=== PATIENT | male | born 1950 | race Caucasian/White ===

== ENCOUNTER → 2022-01-12 | Outpatient (CLI) | payer MEDICARE, OTHER ==
[~2022-01-12] VITALS: Ht 182.9 cm; Wt 95.0 kg
[2022-01-12] VITALS (8 sets, daily range): BP systolic 141–196; BP diastolic 47–99; PULSE 53–76; TEMP 98.1
[~2022-01-12] MED LIST: HYZAAR 25 MG-101 TAB PO; JUICE PLUS FRUIT PO; JUICE PLUS OMEGA PO; LEVOXYL0.088 MG PO; NORVASC 10MG10 MG PO; TYLENOL 500MG500 MG PO; VITAMIN D 50,1.25 MG PO; [UNRECOGNIZED DRUG - OTHER] PO
== END ==
LOC: COL.RAD 12:00
DX: S34.115A Complete lesion of L5 level of lumbar spinal cord, initial encounter (principal); M54.50 Low back pain, unspecified
CPT/HCPCS: 32109

== ENCOUNTER → 2022-07-15 | Outpatient (CLI) | payer MEDICARE | LOC: COL.RAD 08:13 | DX: C34.90 Malignant neoplasm of unspecified part of unspecified bronchus or lung (principal); C79.51 Secondary malignant neoplasm of bone | CPT/HCPCS: Q9967 ==

== ENCOUNTER 2023-11-28 13:58 | Outpatient (CLI) | payer OTHER ==
[~2023-11-28] VITALS: Ht 182.9 cm; Wt 84.5 kg
[~2023-11-28 13:58] MED LIST changes: +CANCER MEDICATION PO; +FOLIC ACID 11 MG/TA1 PO; +HYZAAR 50-12.1 UDTAB PO; +PREDNISONE20 MG PO; +PRILOSEC 20MG20 MG PO; +PROBIOTIC-MAJOR PO; +VITAMIN B12 1541 TAB PO; +ZYRTEC 10MG10 MG PO; +[UNRECOGNIZED DRUG - OTHER] PO
[2023-11-28] MEDS ORDERED: CALCIUM CITRATE1 TA4 PO (14:17)
[2023-11-28] MEDS ORDERED: K-DUR20 MEQ PO (14:17)
[2023-11-28] MEDS ORDERED: LASIX 20MG TABL20 MG PO (14:19)
[2023-11-28] MEDS ORDERED: [UNRECOGNIZED DRUG - OTHER] PO (14:23)
[2023-11-28 14:25] VITALS: BP 125/67; PULSE 66; TEMP 97.4
[2023-11-28 16:41] VITALS: BP 127/60; PULSE 66
--- NOTE | 2023-11-28 16:55 | NUR ---
PT TOLERATED RECOVERY WELL. VS REMAINED WITHIN NORMAL LIMITS. PT FREE FROM ACUTE CONCERNS AND COMPLAINTS UPON DISCHARGE. PT WAS ASSISTED TO MAIN LOBBY VIA WHEELCHAIR. IV DISCONTINUED.
[2023-11-28 17:18] LABS: PLEURAL FLUID RBC 7000 /mm3 (0-0); PLEURAL FLUID WBC 839 /mm3
[2023-11-28 22:00] LABS: BODY FLUID PH (AMS) 8 (())
[2023-11-29 06:10] LABS: PLEURAL FLUID APPEARANCE HAZY; PLEURAL FLUID COLOR YELLOW
== END 2023-11-28 16:56 | disposition home or self-care (01) ==
LOC: COL.RAD 13:58
PROVIDERS: Internal Medicine
DX: J90 Pleural effusion, not elsewhere classified (principal); Z85.118 Personal history of other malignant neoplasm of bronchus and lung
CPT/HCPCS: 19804

== ENCOUNTER 2023-12-09 19:55 | Inpatient (IN) | payer OTHER ==
[~2023-12-09] VITALS: Ht 172.7 cm; Wt 82.4 kg
[~2023-12-09 19:55] MED LIST changes: +CALCIUM CITRATE1 TA4 PO; +K-DUR20 MEQ PO; +LASIX 20MG TABL20 MG PO; +[UNRECOGNIZED DRUG - OTHER] PO
[2023-12-09 20:37] LABS: BASO % 0.3 % (0.0-2.0); EOS # 0.1 K/mm3 (0.0-0.7); EOS % 0.7 % (0.0-4.0); GRAN # 8.4 K/mm3 (1.4-6.5); GRAN % 78.3 % (42.2-75.2); INR 1.1 (0.8-3.0); LYMPH # 0.8 K/mm3 (1.2-3.4); MEAN CELL VOLUME 93 fl (80.0-100.0); MEAN CORPUSCULAR HGB CONC 31 g/dl (33.0-37.0); MEAN PLATELET VOLUME 9.5 fl (7.4-10.4); MONO # 1.4 K/mm3 (0.1-0.6); PLATELET COUNT 272 K/mm3 (130-400); PROTHROMBIN TIME 11.9 SECONDS (9.7-12.8); RED BLOOD COUNT 3.33 M/mm3 (4.20-5.60); REDCELL DISTRIBUTION WIDTH-CV 16.7 % (11.5-14.5)
[2023-12-09 20:38] LABS: HEMOGLOBIN 9.7 g/dl (13.5-18.0); MEAN CORPUSCULAR HEMOGLOBIN 29 pg (27-31)
[2023-12-09 20:40] LABS: PARTIAL THROMBOPLASTIN TIME 29.6 SECONDS (26.0-37.0)
[2023-12-09 20:48] LABS: ALBUMIN 2.7 g/dL (3.4-4.8); CREATININE, serum 1.12 mg/dL (0.72-1.25); POTASSIUM 4.3 mEq/L (3.5-4.5); TOTAL PROTEIN 6.3 g/dl (6.2-8.1)
[2023-12-09 20:57] LABS: BILIRUBIN,TOTAL 0.3 mg/dL (0.2-1.2)
[2023-12-09] MEDS ORDERED: Acetaminophen 325 MG TAB PO PRN (23:45)
[2023-12-09] MEDS ORDERED: Metoprolol Tartrate 25 MG TAB PO SCH (23:45)
[2023-12-10] VITALS (11 sets, daily range): BP systolic 99–129; BP diastolic 51–73; PULSE 43–75; TEMP 97.6–98.6
[2023-12-10] MEDS ORDERED: LIALDA 1.2 GM1.2 GM PO (00:47)
[2023-12-10] MEDS ORDERED: Melatonin 3 MG TAB PO SCH (01:56)
--- NOTE | 2023-12-10 05:57 | NUR ---
PT ARRIVED TO UNIT AROUND 0100 FROM ED, WALKED INDEPENDANTLY FROM [place] TO BED IN ROOM. VERY PLEASANT MAN WHO REPORTS HE SERVED IN [email or web address], APPEARS APPROPRIATE FOR AGE. ORIENTED TO ROOM AND ALL ADMSSION ASSESSMENTS COMPLETE. HIS SHOULD BE BRINGING IN HIS ORAL CHEMO MEDICATION LATER THIS MORNING. DENIES ANY PAIN AT THIS TIME, AND VS WNL. HAS +2PITTING EDEMA TO RIGHT LOWER EXTREMITY, MED REQU COMPLETE. WANT TO GET SOME REST AND IS AWARE HE WILL BE HERE AT LEAST UNTIL TUESDAY FOR ANTICIPATED PROCEDURES. CALL LIGHT WITHIN REACH, BED IN LOWEST POSITION.
[2023-12-10 06:06] LABS: BASO % 0.5 % (0.0-2.0); EOS # 0.1 K/mm3 (0.0-0.7); EOS % 1.1 % (0.0-4.0); GRAN % 73.4 % (42.2-75.2); LYMPH # 0.8 K/mm3 (1.2-3.4); LYMPH % 9.2 % (20.0-51.0); MEAN CELL VOLUME 93 fl (80.0-100.0); MEAN CORPUSCULAR HGB CONC 32 g/dl (33.0-37.0); MEAN PLATELET VOLUME 9.5 fl (7.4-10.4); MONO # 1.2 K/mm3 (0.1-0.6); MONO % 15.1 % (1.7-9.3); PLATELET COUNT 215 K/mm3 (130-400); RED BLOOD COUNT 2.73 M/mm3 (4.20-5.60); REDCELL DISTRIBUTION WIDTH-CV 16.6 % (11.5-14.5)
[2023-12-10 06:14] LABS: HEMATOCRIT 25.3 % (42.0-52.0); MEAN CORPUSCULAR HEMOGLOBIN 29 pg (27-31)
[2023-12-10 06:31] LABS: CALCIUM 8.2 mg/dL (8.4-10.2); CREATININE, serum 1.05 mg/dL (0.72-1.25); POTASSIUM 4.2 mEq/L (3.5-4.5)
--- NOTE | 2023-12-10 07:39 | NUR ---
Bedside report received from SHAREE Alexander. Pt awake in bed with no complaints. Call light within reach.
[2023-12-10] MEDS ORDERED: Cyanocobalamin (Vit B-12) 1,000 MCG TAB PO SCH (09:00)
[2023-12-10] MEDS ORDERED: Cetirizine 10 MG TAB PO SCH (09:00)
[2023-12-10] MEDS ORDERED: Folic Acid 1 MG TAB PO SCH (09:00)
[2023-12-10] MEDS ORDERED: Mesalamine DR 1.2 GM TAB PO SCH ×2 (09:00→22:05)
[2023-12-10] MEDS ORDERED: Calcium Citrate/Vit D3 200 mg-250 Units TAB PO SCH (09:00)
--- NOTE | 2023-12-10 09:01 | NUR ---
This nurse entered pt room to complete shift assessment and observed spouse at bedside give pt a bottle of home medications. Home medication bottle is unlabled and contains different medications per pt and pt spouse. This nurse educated pt about protocol to send home medications to pharmacy and pt stated he had oral chemo medication that he needed to take. This nurse notified hospitalist Dr. Pathak and Dr. Pathak instructed this nurse to send home medications to pharmacy for identification of medications. Pt was agreeable to allow pharmacy to identify medications. Spouse of pt is going to bring in original bottles for pharmacy.
--- NOTE | 2023-12-10 09:19 | NUR ---
Pt awake in bed eating breakfast. Shift assessment completed. VSS.
--- NOTE | 2023-12-10 11:29 | NUR ---
SW met with patient to complete intake. Patient states that he lives in [facility] with spouse Nicole Hitchcock [phone]. Patient provides he does not utilize DME, is independent with ADLs, and does not utilize home health services at this time. Patient provides his spouse has been appointed as DPOA/HC. Patient provides he plans to return to his home upon discharge. SW will continue to follow. Discharge plan: home
[2023-12-10] MEDS ORDERED: Patient's Own Medication Item PO SCH (12:30)
--- NOTE | 2023-12-10 14:14 | NUR ---
Data: Patient politely declined spiritual care visit offered during Director Athletic rounds. Assessment: None. Patient declined. Plan of Care: Chaplains will remain available as requested while Patient is admitted to this hospital.
--- NOTE | 2023-12-10 16:28 | NUR ---
Dr. Hernandez notifed of heart rate of 43 bpm.
--- NOTE | 2023-12-10 21:50 | NUR ---
DISCREPANCY ON DOSAGE OF MESALAMINE, PT HOME MED. NOTIFIED BOND BROKER JENNIFER WHO CHECKED BOTTLE IN PHARMACY. NOTIFIED FELTON EVANS APRN WHO GAVE TORB TO UPDATE CORRECT DOSAGE IN MAR AND MED REQ.
[2023-12-10] MEDS ORDERED: Mesalamine DR 1.2 GM TAB PO ONE (22:15)
[2023-12-11] VITALS (14 sets, daily range): BP systolic 102–133; BP diastolic 54–73; PULSE 40–87; TEMP 98–98.6
--- NOTE | 2023-12-11 02:43 | NUR ---
PT ALERT AND ORIENENTED ACCOMPANIED BY AT BEDSIDE AT START OF SHIFT. REALLY WANTING THE THORACENTESIS DONE TO HELP PT WITH EASE OF BREATHING. UPDATED MED REC. ASSESSED AND MEDICATED PER EMAR, EVEN UNLABORED RESPR ON 4 L NC. DENIES PAIN WOULD LIKE CHEMO MEDS RO BE GIVEN ON SCHEDULE AT 0900 AND 2100. WILL BE SURE TO PASS ON IN REPORT. DENIES FURTHER NEED, CALL LIGHT WITHIN REACH.
[2023-12-11 06:55] LABS: BASO % 0.5 % (0.0-2.0); EOS # 0.1 K/mm3 (0.0-0.7); GRAN % 75.5 % (42.2-75.2); LYMPH # 0.6 K/mm3 (1.2-3.4); LYMPH % 7.2 % (20.0-51.0); MEAN CELL VOLUME 92 fl (80.0-100.0); MEAN CORPUSCULAR HGB CONC 32 g/dl (33.0-37.0); MEAN PLATELET VOLUME 9.7 fl (7.4-10.4); MONO # 1.2 K/mm3 (0.1-0.6); MONO % 15.2 % (1.7-9.3); PLATELET COUNT 210 K/mm3 (130-400); RED BLOOD COUNT 2.85 M/mm3 (4.20-5.60); REDCELL DISTRIBUTION WIDTH-CV 16.3 % (11.5-14.5)
[2023-12-11 07:02] LABS: HEMATOCRIT 26.2 % (42.0-52.0); HEMOGLOBIN 8.5 g/dl (13.5-18.0); MEAN CORPUSCULAR HEMOGLOBIN 30 pg (27-31)
--- NOTE | 2023-12-11 07:07 | NUR ---
Bedside report received from SHAREE Alexander. Pt resting in bed with no complaints. Call light within reach.
[2023-12-11 07:08] LABS: CALCIUM 8.1 mg/dL (8.4-10.2); CREATININE, serum 0.87 mg/dL (0.72-1.25); POTASSIUM 3.9 mEq/L (3.5-4.5)
[2023-12-11] MEDS ORDERED: Mesalamine DR 1.2 GM TAB PO SCH ×2 (09:00)
--- NOTE | 2023-12-11 09:04 | NUR ---
Pt awake in bed. Shift assessment completed. VSS with O2 in place via NC at 4L. Tachypnea with shallow respirations noted. BLE edema noted. Telemetry in place. Pt denies pain at this time. Pt has no complaints at this time, call light within reach.
[2023-12-12] VITALS (20 sets, daily range): BP systolic 94–126; BP diastolic 46–85; PULSE 45–102; TEMP 97.6–98.6
--- NOTE | 2023-12-12 07:12 | NUR ---
Bedside report received from SHAREE Moraes. Pt awake in bed with no complaints. Call light within reach.
[2023-12-12 07:17] LABS: BASO % 0.4 % (0.0-2.0); EOS # 0.1 K/mm3 (0.0-0.7); EOS % 0.7 % (0.0-4.0); GRAN # 6.5 K/mm3 (1.4-6.5); GRAN % 75.6 % (42.2-75.2); LYMPH # 0.6 K/mm3 (1.2-3.4); LYMPH % 7.3 % (20.0-51.0); MEAN CELL VOLUME 94 fl (80.0-100.0); MEAN CORPUSCULAR HGB CONC 32 g/dl (33.0-37.0); MEAN PLATELET VOLUME 9.6 fl (7.4-10.4); MONO # 1.3 K/mm3 (0.1-0.6); MONO % 15.3 % (1.7-9.3); PLATELET COUNT 203 K/mm3 (130-400); RED BLOOD COUNT 2.88 M/mm3 (4.20-5.60); REDCELL DISTRIBUTION WIDTH-CV 16.4 % (11.5-14.5)
[2023-12-12 07:23] LABS: HEMOGLOBIN 8.5 g/dl (13.5-18.0); MEAN CORPUSCULAR HEMOGLOBIN 30 pg (27-31)
[2023-12-12 07:37] LABS: CREATININE, serum 0.85 mg/dL (0.72-1.25); POTASSIUM 3.9 mEq/L (3.5-4.5)
--- NOTE | 2023-12-12 08:45 | NUR ---
Pt awake in bed visiting with at bedside. Shift assessment completed. VSS. Rt lung sounds diminished throughout upon auscultation. Lt lung sounds clear throughout upon auscultation. Pt denies pain at this time. INT to Rt AC patent with no swelling, redness, or drainage. Pt has no request at this time. Call light within reach.
--- NOTE | 2023-12-12 12:05 | NUR ---
Pt found on 2L/NC 87% at rest. Did not amublate. Placed on 4L Oxymask for SPO2 91%. Mild SOA at rest.
--- NOTE | 2023-12-12 15:38 | NUR ---
social worker delinquency prevention attended interdisciplinary clinical rounding with Dr. Galeano. Patient may need oxygen upon discharge but will complete an exercise oximetry test. SW met with patient and his to confirm if patient has Medicare. Patient reports he does not have Medicare insurance only the [place]. SW was notified patient is awaiting a procedure then will have his exercise oximetry completed to determine oxygen needs. Discharge plan: Home
[2023-12-12 17:33] LABS: PLEURAL FLUID RBC 2000 /mm3 (0-0); PLEURAL FLUID WBC 1008 /mm3
[2023-12-12 17:34] LABS: PLEURAL FLUID APPEARANCE HAZY; PLEURAL FLUID COLOR YELLOW
--- NOTE | 2023-12-12 18:58 | NUR ---
report received from lilia newell. pt resting in bed watching tv. pt continues on post op vital signs wnl. pt denies pain. call light in reach. all needs met at this time.
--- NOTE | 2023-12-12 21:04 | NUR ---
shift assessment complete, see documentation. pt tolerated hs meds well. pt denies pain. thoracentesis site cdi. pt able to take slow deep breaths without issue. RLL lung sounds absent but pt asymptomatic. oxygen remains 96% on 6L NC. call light in reach. all needs met at this time.
[2023-12-13] VITALS (8 sets, daily range): BP systolic 94–124; BP diastolic 67–73; PULSE 57–85; TEMP 98–98.1
[2023-12-13 05:46] LABS: BASO % 0.4 % (0.0-2.0); EOS # 0.1 K/mm3 (0.0-0.7); GRAN % 75.6 % (42.2-75.2); LYMPH # 0.7 K/mm3 (1.2-3.4); LYMPH % 7.3 % (20.0-51.0); MEAN CELL VOLUME 92 fl (80.0-100.0); MEAN CORPUSCULAR HGB CONC 33 g/dl (33.0-37.0); MEAN PLATELET VOLUME 9.5 fl (7.4-10.4); MONO # 1.4 K/mm3 (0.1-0.6); MONO % 15.3 % (1.7-9.3); PLATELET COUNT 179 K/mm3 (130-400); RED BLOOD COUNT 2.87 M/mm3 (4.20-5.60); REDCELL DISTRIBUTION WIDTH-CV 15.9 % (11.5-14.5)
[2023-12-13 05:54] LABS: HEMATOCRIT 26.4 % (42.0-52.0); HEMOGLOBIN 8.6 g/dl (13.5-18.0); MEAN CORPUSCULAR HEMOGLOBIN 30 pg (27-31)
[2023-12-13 05:58] LABS: CALCIUM 7.9 mg/dL (8.4-10.2); CREATININE, serum 0.81 mg/dL (0.72-1.25)
--- NOTE | 2023-12-13 07:26 | NUR ---
SPO2 98% ON 2 LPM NC. DECREASED TO 5 LPM NC. RN NOTIFIED
--- NOTE | 2023-12-13 09:13 | NUR ---
spo2 at rest 93% on 5 human resources professional nc
--- NOTE | 2023-12-13 12:44 | NUR ---
gas pit worker attended interdisciplinary clinical rounding with Dr. Galeano. Patient will need oxygen. KIMBERLEE obtained RFS for patient to receive oxygen through the [place]. KIMBERLEE faxed and secure emailed RFS and supporting documentation to the [facility]. KIMBERLEE was notified patient had received a call from the [facility] and they gave patient a different fax number, F# [phone], social science teacher faxed to this number as well. KIMBERLEE notified patient's she had sent these and were waiting to hear from VA. Patient's also requested walker with seat and shower chair. KIMBERLEE will send another RFS to [place] for these DME supplies. Discharge plan: home
[2023-12-13 13:30] LABS: BODY FLUID PH (AMS) 8 (())
[2023-12-13] MEDS ORDERED: COMPAZINE 110 MG/TAB PO (14:30)
[2023-12-13] MEDS ORDERED: RESTORIL 1515 MG/CAP PO (14:30)
--- NOTE | 2023-12-13 16:23 | NUR ---
line out worker was notified by [place] that they were going to transfer her to the home oxygen specialist, Sharath, P# [phone] [id number]. KIMBERLEE was notified by Sharath that his fax is [phone] and he would work on obtaining the oxygen supplies needed. KMIBERLEE faxed the information to Sharath at [phone]. KIMBERLEE faxed the RFS for the rollator walker and shower chair to counts include [facility] beds at the [facility]. KIMBERLEE notified patient that she had to resend it to the VA to another number and she would keep his staff informed about the process. KIMBERLEE explained she requested the walker and shower chair be delivered to his home so they would not need to wait for those at the hospital. Patient thanked executive secretary social welfare. KIMBERLEE was notified by Sharath that he had sent it to their contractor whom will deliver the oxygen to patient's room. KIMBERLEE asked for an estimated timeline, Sharath stated approximately 2-3 hours. Sharath stated normally they can get patient's out of the hospital with oxygen quickly as long as the information is sent to the correct location. KIMBERLEE notified patient's nurse, Dr. Galeano and ANASTACIA Woodson. Discharge plan: Home with oxygen
--- NOTE | 2023-12-13 17:58 | NUR ---
PATIENT DISCHARGE INSTRUCTIONS GIVEN. PATIENT QUESTIONS WERE ANSWERED. CALL LIGHT WITHIN REACH. BED AT LOWEST POSITION.
--- NOTE | 2023-12-13 19:21 | NUR ---
RECIEVED REPORT FROM DAY SHIFT. PT IS WAITING ON RIDE TO GO HOME.
--- NOTE | 2023-12-13 19:52 | NUR ---
PT CAME TO FLOOR SCRAPER PT. THIS NURSE ESCORTED PT OUT IN WHEEL CHAIR WITH OXYGEN AT 5 LITERS.
== END 2023-12-13 19:53 | disposition home or self-care (01) | DRG 180 ==
LOC: COL.ER 19:55 → MEDICAL 22:12
PROVIDERS: Family Medicine; Internal Medicine; Nurse Practitioner Family; Physician Assistant; ADMIT Internal Medicine
DX: C34.91 Malignant neoplasm of unspecified part of right bronchus or lung (principal); J96.01 Acute respiratory failure with hypoxia; J90 Pleural effusion, not elsewhere classified; I10 Essential (primary) hypertension; R00.8 Other abnormalities of heart beat; E03.9 Hypothyroidism, unspecified

== ENCOUNTER 2023-12-21 18:38 | Inpatient (IN) | payer OTHER ==
[~2023-12-21] VITALS: Ht 182.9 cm; Wt 79.2 kg
[~2023-12-21 18:38] MED LIST changes: +COMPAZINE 110 MG/TAB PO; +LIALDA 1.2 GM1.2 GM PO; +RESTORIL 1515 MG/CAP PO
[2023-12-21 19:09] LABS: ARTERIAL BLD GAS O2 SATURATION 94.4 % (92-100); ARTERIAL BLD GAS TCO2 CT 21.8; ARTERIAL BLOOD GAS BASE EXCESS -2.1 (-2-2); ARTERIAL BLOOD GAS HCO3 20.9 meq/L (22-26); ARTERIAL BLOOD GAS PCO2 29.5 mmHg (35-45); ARTERIAL BLOOD GAS PO2 73.6 mmHg (80-100); ARTERIAL BLOOD GAS pH 7.47 (7.35-7.45)
[2023-12-21 19:35] LABS: MEAN CELL VOLUME 91 fl (80.0-100.0); MEAN CORPUSCULAR HGB CONC 31 g/dl (33.0-37.0); MEAN PLATELET VOLUME 9.8 fl (7.4-10.4); PLATELET COUNT 204 K/mm3 (130-400); RED BLOOD COUNT 3.17 M/mm3 (4.20-5.60); REDCELL DISTRIBUTION WIDTH-CV 16.5 % (11.5-14.5)
[2023-12-21 19:45] LABS: HEMATOCRIT 28.7 % (42.0-52.0); MEAN CORPUSCULAR HEMOGLOBIN 28 pg (27-31)
[2023-12-21 19:53] LABS: ALANINE AMINOTRANSFERASE 10 U/L (0-55); ALBUMIN 2.2 g/dL (3.4-4.8); ALKALINE PHOSPHATASE 68 U/L (40-150); ANION GAP 9 mmol/L (7-16); AST,SGOT 12 U/L (5-34); BILIRUBIN,TOTAL 0.4 mg/dL (0.2-1.2); BLOOD UREA NITROGEN 12 mg/dL (8-26); CALCIUM 8.6 mg/dL (8.4-10.2); CHLORIDE 106 mEq/L (98-107); CREATININE, serum 0.87 mg/dL (0.72-1.25); GLUCOSE 112 mg/dL (70-99); POTASSIUM 4.3 mEq/L (3.5-4.5); SODIUM 137 mEq/L (136-145); TOTAL PROTEIN 5.9 g/dl (6.2-8.1)
[2023-12-21 20:00] LABS: TROPONIN-I < 0.010 ng/mL (0.00-0.033)
[2023-12-21 20:25] LABS: ANISOCYTOSIS 1+; BAND 7 % (0-10); EOSINOPHIL 1 % (0-4); LYMPHOCYTE 8 % (20.0-51.0); NEUTROPHILS 68 % (42.0-75.2)
[2023-12-21] MEDS ORDERED: Albuterol/Ipratropium 3 MG-0.5 MG/3 ML Neb Soln IH PRN (21:00)
[2023-12-21] MEDS ORDERED: Acetaminophen 325 MG TAB PO PRN (21:00)
[2023-12-21 21:45] VITALS: BP 133/70; PULSE 83; TEMP 99
[2023-12-21] MEDS ORDERED: Mesalamine DR 1.2 GM TAB PO SCH (21:58)
[2023-12-21] MEDS ORDERED: RESTORIL 1515 MG/CAP PO (22:22)
[2023-12-21 23:40] VITALS: O2SAT 99
[2023-12-22] VITALS (164 sets, daily range): BP systolic 99–130; BP diastolic 42–86; PULSE 57–109; TEMP 98–98.9; O2SAT 78–100
--- NOTE | 2023-12-22 00:34 | NUR ---
PT ARRIVED FROM ER VIA STRETCHER AT 2140 THE EVENING OF 12/21/23. ESCORTED HIM TO ROOM, REVIEWED POC WITH HER, THEN SHE WENT HOME FOR THE NIGHT. PT HAS BEEN RESTING SINCE THAT TIME ON 15L O2 VIA OXYMASK, RESPIRATORY RATE REMAINS IN THE 30'S, HOWEVER PT APPEARS TO BE IN NO ACUTE DISTRESS AND HAS BEEN RESTING WELL. THIS RN WAS UNABLE TO FLUSH PORT A CATH, USED 20 G PIV TO L A/C FOR ZOSYN ADMINISTRATON. WILL ATTEMPT TO REESTABLISH ACCESS TO PORT WITH ADDITIONAL ASSISTANCE. PT WILL BE KEPT NPO FROM THIS TIME FOR PROBABLE PROCEDURE IN AM. PT AND AWARE OF PLAN. BILAT HEARING AIDS AND LOWER DENTURES PLACED IN CONTAINER WITH PT'S STICKER, CLOTHING IN PT BELONGING BAG IN ROOM.
[2023-12-22] MEDS ORDERED: Albuterol/Ipratropium 3 MG-0.5 MG/3 ML Neb Soln IH SCH (02:00)
--- NOTE | 2023-12-22 04:20 | NUR ---
PT WITH RECENT CONVERSION TO AFIB. EKG PERFORMED, NIGHT HOSPITALIST AWARE. WILL CONSULT CARDIOLOGY IN AM. PT REPORTS NO PAIN OR DISCOMFORT.
[2023-12-22 05:16] LABS: CALCIUM 8.4 mg/dL (8.4-10.2); CREATININE, serum 0.94 mg/dL (0.72-1.25); POTASSIUM 4.1 mEq/L (3.5-4.5)
[2023-12-22 06:25] LABS: MEAN CELL VOLUME 88 fl (80.0-100.0); MEAN CORPUSCULAR HGB CONC 33 g/dl (33.0-37.0); MEAN PLATELET VOLUME 10.3 fl (7.4-10.4); PLATELET COUNT 216 K/mm3 (130-400); RED BLOOD COUNT 3.14 M/mm3 (4.20-5.60); REDCELL DISTRIBUTION WIDTH-CV 16.6 % (11.5-14.5)
[2023-12-22 06:26] LABS: HEMATOCRIT 27.5 % (42.0-52.0); MEAN CORPUSCULAR HEMOGLOBIN 29 pg (27-31)
[2023-12-22 07:12] LABS: ANISOCYTOSIS 1+; BAND 3 % (0-10); EOSINOPHIL 3 % (0-4); LYMPHOCYTE 7 % (20.0-51.0); METAMYELOCYTE 2 % (0-0); NEUTROPHILS 72 % (42.0-75.2); PLATELET ESTIMATE NORMAL (NORMAL)
--- NOTE | 2023-12-22 07:37 | NUR ---
CALLED PAGER FOR DR. STEPHENSON FOR CARDIOLOGY CONSULT, NO RETURN CALL AT THIS TIME.
--- NOTE | 2023-12-22 08:30 | NUR ---
PATIENT RECIEVED A THORACENTESIS. THE PATIENT COOPERATED FULLY AND SIGNED CONSENTS. DR. COREY REMOVED A LITER OF FLUID OFF OF THE RIGHT LUNG. PATIENT STABLE.
[2023-12-22] MEDS ORDERED: Cetirizine 10 MG TAB PO SCH (09:00)
[2023-12-22] MEDS ORDERED: Calcium Citrate/Vit D3 200 mg-250 Units TAB PO SCH (09:00)
[2023-12-22] MEDS ORDERED: Cyanocobalamin (Vit B-12) 1,000 MCG TAB PO SCH (09:00)
[2023-12-22] MEDS ORDERED: Folic Acid 1 MG TAB PO SCH (09:00)
[2023-12-22] MEDS ORDERED: Pantoprazole 40 MG in NS 10 ML IV SCH (09:00)
[2023-12-22] MEDS ORDERED: TYLENOL 500MG500 MG PO (09:57)
--- NOTE | 2023-12-22 10:06 | NUR ---
insulation worker met with patient, (Nicole) P# [phone] and daughter (Nancy), P# [phone] to complete assessment. Patient lives in [place] with his . PCP is [facility] [place]. Pharmacy is [facility]. Insurance is [employer]. Patient does not have Medicare. DPOA-HC is Nicole. Patient was recently discharged from the hospital and had oxygen set up through the [facility], they also received a rollator walker and shower chair. Nicole reported the shower chair had a screw that was stripped so they wanted to see if the VA could replace it. SW asked how patient has been getting around with ADLS since the last hospitalization. Patient has been using his rollator walker to get to and from the bathroom by sitting on the seat. KIMBERLEE explained patient will be evaluated by physical therapy while in the hospital and he may need some rehab before returning home from this hospital stay or may need home health depending on what PT says. KIMBERLEE explained the [facility] has their own rehab unit that he could go to in [place] if needed. Nicole reported she was not certain that she would want him in [place]. KIMBERLEE discussed the two nursing facilities that are contracted with the [facility] in [place] are [facility] and [facility]. KIMBERLEE explained [facility] is the other facility in [place] but they are not in network with the [facility]. KIMBERLEE explained another option would be the IPR unit in the hospital and explained he would need to be able to tolerate 3 hours of therapy a day. KIMBERLEE explained once PT evaluates him, a social worker delinquency prevention will meet with them and give the options available in his area that are in network with the VA. Patient and family understood. No additional questions at this time. KIMBERLEE emailed the VA regarding a replacement shower chair for this patient. Discharge plan: PT evaluation pending
--- NOTE | 2023-12-22 11:59 | NUR ---
Data: Patient's accepted spiritual care visit offered during Livestock Showman rounds. Livestock Showman discussed the need for self-care when a loved one is in the hospital. They are Mandaeism. has phone number for her steam hoist operator and will contact steam hoist operator on her own. Visit ended when Patient requested to use the toilet. Assessment: Patient stated it was difficult for him to breathe if he spoke. Patient listened to conversation between Patient and . Plan of Care: Livestock Showman provided supportive listening; affirming need for self-care for . Chaplains will remain available as needed/requested while Patient is admitted to this hospital.
--- NOTE | 2023-12-22 13:00 | NUR ---
Patient taken upstairs to medical room 353 by wheelchair. Patient accompanied by this nurse and his who had all of patient's belongings. Patient in stable condition, vital signs were within normal limits with the exception of heart rhythm, as patient was still in afib. Patient on 5L O2 via Oxymask. Notified his nurse upstairs, SHAREE Santana, of patient's arrival.
--- NOTE | 2023-12-22 13:15 | NUR ---
Pt arrived to medical floor from ICU. Report received from SHAREE Junior. Shift assessment completed. Pt is A&O x4. VSS. Bandaid to Rt middle back, CDI. O2 in place at 6L via oxymask. Oriented pt to room, call light, and bathroom. Telemetry in place. Zosyn infusing into Lt AC as ordered without complications. Home medications, allergies, and pharmacy reviewed with pt. and son at bedside. SCDs in place on BLE. Pt has no request at this time. Call light within reach.
[2023-12-22] MEDS ORDERED: 1/2 NS 250 ML IV SCH (15:30)
[2023-12-22] MEDS ORDERED: Amiodarone 450 MG in D5W Excel 250 ML IV SCH ×2 (15:45→21:30)
--- NOTE | 2023-12-22 18:28 | NUR ---
INTERIOR DESIGN FACULTY MEMBER Carey notifed by phone that most recent EKG indicated afib, INTERIOR DESIGN FACULTY MEMBER Carey instructed this nurse to notify Dr. Hayes by phone of EKG. Dr. Hayes notifed by phone of EKG and stated to this nurse that given pt status with afib and IV amiodarone infusing that Dr. Hayes does not need to be notifed of afib on EKG.
--- NOTE | 2023-12-22 19:35 | NUR ---
PATIENT RESTING IN BED SITTING UP WITH TV ON WITH AT BEDSIDE WITH NO ACUTE DISTRESS NOTED. PATIENT ON 6 LITERS OF OXYGEN VIA OXYMASK. AMI DRIP INFUSING INT LEFT FORERM WITH NO COMPLICATIONS NOTED. ZOSYN INFUSING INTO LEFT AC WITH NO COMPLICATIONS NOTED. TELEMETRY INTACT. ASSESSMENT COMPLETED AT THIS TIME. PATIENT TOLERATED WELL. REQUESTED TO STAY THE NIGHT AND WAS GRANTED. PATIENT DENIES ANY OTHER NEEDS AT THIS TIME. BED IN LOW POSITION WITH WHEELS LOCKED WITH RAILS UP X3 AND CALL LIGHT WITHIN REACH.
[2023-12-22] MEDS ORDERED: Mesalamine DR 1.2 GM TAB PO SCH (21:00)
--- NOTE | 2023-12-22 22:34 | NUR ---
RATE CHANGED ON AMIO DRIP AT THIS TIME. PATIENT TOELRATING WELL.
[2023-12-23] VITALS (18 sets, daily range): BP systolic 112–135; BP diastolic 55–85; PULSE 58–82; TEMP 97.8–99.5
[2023-12-23 06:41] LABS: BASO % 0.2 % (0.0-2.0); EOS # 0.1 K/mm3 (0.0-0.7); EOS % 0.6 % (0.0-4.0); GRAN # 10.1 K/mm3 (1.4-6.5); GRAN % 81.3 % (42.2-75.2); LYMPH # 0.7 K/mm3 (1.2-3.4); LYMPH % 5.3 % (20.0-51.0); MEAN CELL VOLUME 90 fl (80.0-100.0); MEAN CORPUSCULAR HGB CONC 32 g/dl (33.0-37.0); MEAN PLATELET VOLUME 10.1 fl (7.4-10.4); MONO # 1.4 K/mm3 (0.1-0.6); MONO % 11.5 % (1.7-9.3); PLATELET COUNT 207 K/mm3 (130-400); RED BLOOD COUNT 2.89 M/mm3 (4.20-5.60); REDCELL DISTRIBUTION WIDTH-CV 16.5 % (11.5-14.5)
[2023-12-23 06:46] LABS: CALCIUM 8.1 mg/dL (8.4-10.2); CREATININE, serum 1.03 mg/dL (0.72-1.25); POTASSIUM 4.1 mEq/L (3.5-4.5)
[2023-12-23 06:48] LABS: HEMOGLOBIN 8.2 g/dl (13.5-18.0); MEAN CORPUSCULAR HEMOGLOBIN 28 pg (27-31)
[2023-12-23] MEDS ORDERED: fentaNYL 50 MCG/ML 2 ML VIAL ONE (06:59)
[2023-12-23] MEDS ORDERED: Lidocaine PF 2% (20 MG/ML) 5 ML VIAL ONE (07:00)
[2023-12-23] MEDS ORDERED: Ondansetron 4 MG/2 ML VIAL IV PRN ×2 (07:15→15:45)
[2023-12-23] MEDS ORDERED: droPERidol 2.5 MG/ML 2 ML VIAL IV PRN (07:15)
[2023-12-23] MEDS ORDERED: Meperidine 50 MG/ML 1 ML VIAL IV PRN (07:15)
[2023-12-23] MEDS ORDERED: HYDROmorphone 1 MG/1 ML SYRINGE [PACU/SDC ONLY] IV PRN (07:15)
[2023-12-23] MEDS ORDERED: Morphine 2 MG/1 ML VIAL [PACU/SDC ONLY] IV PRN (07:15)
[2023-12-23] MEDS ORDERED: fentaNYL 50 MCG/ML 1 ML SYRINGE/VIAL [PACU/SDC ONLY] IV PRN (07:15)
--- NOTE | 2023-12-23 07:31 | NUR ---
Bedside report received from SHAREE Sinclair. Pt awake in bed with complaints of SOA. PCT Sue at bedside obtaining vital signs. O2 sat at 77% on 5L via oxymask. O2 changed to 6L oxy mask and O2 sat up to 90%. Assisted pt to PACU and verifed amiodarone gtt with SHAREE Davis.
--- NOTE | 2023-12-23 09:20 | NUR ---
Pt back to medical floor from PACU by bed. Report received from RN in PACU. Rt chest tube in place at 20 cm continous suction per Dr. Kadeem MADDOX given. Insertion site CDI with no swelling, redness, or drainage. Pt denies pain at this time rating 0/10. Education provided about managing pain with chest tube in place and pt stated he would notify this nurse when he started having pain. Amiodarone gtt infusing into Lt forearm with no complications. Shift assessment complete. VSS with O2 in place via oxymask at 6L. Telemetry in place. Pt has no request at this time. at bedside. Call light within reach.
[2023-12-23] MEDS ORDERED: Amiodarone 200 MG TAB PO SCH (09:53)
--- NOTE | 2023-12-23 13:26 | NUR ---
cut in worker attempted to meet with pt to discuss PT/OT reccomendation of Home Health. Pt was out of the room. KIMBERLEE later found pts , Nicole and sister to discuss with. KIMBERLEE provided Medicare.gov list and encouraged them to review this if interested. KIMBERLEE advised she would have to complete a Request for Service form through the [place] to have it approved and this can take some time. Nicole appeared unsure about any steps moving forward due to medical concerns. She reports that she is not sure if she can take care of pt alone at home. KIMBERLEE briefly mentioned a chcf and private duty service if she needs additional support outside of HH. She then brought up hospice and what was required for this. KIMBERLEE discussed the need for a diagnosis of 6 months or less to live by a DrCortez, then they could proceed. She appeared tearful and inquired about this as an option if pt transfers to [facility]. KIMBERLEE advised she can always send information to the VA and they can retract or change their mind on what to do. KIMBERLEE later was approached by pt's sister who reports that it would be best to send the RFS for HH as will need more help eventually. KIMBERLEE advised she could do this. KIMBERLEE completed RFS and Dr. Hernandez signed. KIMBERLEE emailed to [facility] email line. Discharge Plan: pending medical interventions
--- NOTE | 2023-12-23 14:15 | NUR ---
Rt notifed this nurse that pt O2 was at 85% on 6L oxymask. Pt assessed and having shallow rapid respirations. Pt reported that he had some episodes of hemoptysis. Dr. Hernandez notifed by phone of pt report and O2 saturation. Dr. Hernandez instructed this nurse to obtain stat CXR and notify Dr. Quan and Dr. Galeano. Attempted to reach Dr. Galeano by phone and was unsuccessful. RN Bee from OR answered Dr. Christensen phone and spoke for Dr. Quan. Dr. Quan stated that he does not feel symptoms are related to chest tube and to inform hospitalist. Dr. Hernandez notifed. Dr. Hernandez at bedside with pt at this time.
[2023-12-23] MEDS ORDERED: Scopolamine 1 MG Delivered 3-Day PATCH TD SCH (15:45)
[2023-12-23] MEDS ORDERED: Atropine 1% Ophth Soln 2 ML BOTTLE SL PRN (15:45)
[2023-12-23] MEDS ORDERED: Morphine Oral Concentrate 20 MG/ML UD SL PRN (15:45)
[2023-12-23] MEDS ORDERED: LORazepam 0.5 MG TAB PO PRN (15:45)
[2023-12-23] MEDS ORDERED: LORazepam 2 MG/ML 1 ML VIAL IV PRN (15:45)
[2023-12-23] MEDS ORDERED: Morphine 4 MG/ML VIAL IV PRN (15:45)
--- NOTE | 2023-12-23 16:24 | NUR ---
KIMBERLEE was informed by SHAREE Santana, in light of recent medical concerns; they would like to transition to hospice. SW met with pt and many family members, along with his , and children to discuss options. reports she is unable to take him home and care for him. She does not want that memory in her house and reports it is not "home." The family wants pt to go to a facility. KIMBERLEE advised that [facility] allows visitors and family to stay the night, if felt inclined as they appeared important. They were interested in [facility] and [facility] as a second as they have heard "good thing." KIMBERLEE advised the weekend SW will keep them updated, but there will not be any update today as SW has to work with his VA and Medicare insurance. KIMBERLEE faxed referral to [facility]. KIMBERLEE spoke with Monica willson who is agreeable to the referral. She reports they do not accept VA insurance and can use his Medicare. Monica will reach out to discuss financials with family or . KIMBERLEE faxed referral to [facility]. KIMBERLEE spoke with [facility] who has no availabilty at this time for LTC with hospice, or this weekend, but they will follow. KIMBERLEE informed SHAREE Santana of the above information and potential for [facility] tomorrow. Discharge Plan: hospice placement
--- NOTE | 2023-12-23 20:30 | NUR ---
UPON SHIFT ASSESSMENT, PATIENT WAS AWAKE IN BED AND AXO X4. HE HAD AND DAUGHTER VISITING BEDSIDE. INCREASE WOB EVIDENT AND LUNG SOUNDS ABSENT IN RTLL, DIMINSHED IN AKLL OTHERS, TRACHEA INLINE. O2 OXYMASK AT 13L. PATIENT IS ON PALLATIVE CARE AND DUE TO [id number]/24 TO [facility]. PO ATIVAN ADMINISTERED. BLOODY TISSUES FROM SPUTUM NOTED ON BEDSIDE TABLE. PORT-A-CATH DC'D. PATIENT REFUSES WATERS CATHETER. CALL LIGHT WITHIN REACH.
[2023-12-23] MEDS ORDERED: Melatonin 3 MG TAB PO SCH (21:38)
[2023-12-24 01:00] VITALS: BP_SYST 135
--- NOTE | 2023-12-24 02:10 | NUR ---
PATIENT ADMITTED TO ROOM FROM ED. VITAL SIGNS ARE: TEMP 98.7, PULSE 78, 97 O2 ON 2L NC, BP 113/89. PATIENT ORIENTED TO ROOM.
[2023-12-24 02:13] VITALS: BP 113/89; PULSE 78; TEMP 98.7
--- NOTE | 2023-12-24 04:00 | NUR ---
PATIENT AND FINALLY ABLE TO SLEEP. REFUGIO CONTINUES TO EXHIBIT ORTHOPNEIC AND LABORED BREATHING. OXYMASK STILL ADMINISTERING 13L O2 PER PATIENT REQUEST.
--- NOTE | 2023-12-24 09:30 | NUR ---
PATIENT RESTING IN BED UPON ENTERING ROOM WITH AT BEDSIDE. STATES PATIENT FEELS MUCH BETTER THIS MORNING AND THINKS HE MAY NOT NEED HOSPICE. IS REQUESTING MORE INFORMATION ABOUT HOSPICE, SOCIAL WORK AND DR. COBB NOTIFIED. PATIENT IS CURRENTLY ON 12L O2 VIA OXYMASK AND COUGHING UP BLOODY THICK SPUTUM. PATIENT APPEARS DROWSY AND LETHARGIC. CALL LIGHT WITHIN REACH. WILL CONTINUE TO MONITOR.
[2023-12-24] MEDS ORDERED: ATIVAN 1MG T1 MG/TAB PO (10:57)
[2023-12-24] MEDS ORDERED: ROXANOL 20MG20 MG/ML SL (10:57)
--- NOTE | 2023-12-24 14:56 | NUR ---
PATIENT GIVEN PRN ANXIETY AND PAIN MEDICATION PER REQUEST. IV'S REMOVED. PATIENT AND FAMILY UPDATED ON DISCHARGE PLAN. REPORT GIVEN TO [facility], ALL QUESTIONS ANSWERED. WAITING FOR EMS TO ARRIVE.
--- NOTE | 2023-12-24 15:24 | NUR ---
PATIENT ESCORTED OFF OF UNIT BY EMS STAFF AT THIS TIME. DISCHARGE PACKET PROVIDED.
--- NOTE | 2023-12-24 15:24 | NUR ---
MED CARE MANAGER met with Pt and bedside to discuss discharge plan today. visibly upset and needing time to make decision. MED CARE MANAGER and Dr. Armando came into the room to discuss goals of care and what the viable next steps were. After extensive conversation and emotional support, opted for [facility]. MED CARE MANAGER notified [facility] and scheudled transportation for 1430 by cart. Daughter at bedside along with at time of discharge. Both visibly tearful but felt good about their decision. MED CARE MANAGER answered any questions they had and provided support. Pt resting comfortably in bed after being given medication. Pt has no DPOA but NOK decision maker is . It is not appropriate for Pt to fill out DPOA paperwork at this time.
== END 2023-12-24 15:29 | disposition hospice, home (50) | DRG 180 ==
LOC: COL.ER 18:38 → MEDICAL 21:16 → ICU 21:16 → MEDICAL 12-22 13:13
PROVIDERS: Nurse Practitioner; Nurse Practitioner Family; ADMIT Internal Medicine
PROC: 0W993ZZ Drainage of Right Pleural Cavity, Percutaneous Approach (ICD-10-PCS; principal; 2023-12-21)
DX: C34.91 Malignant neoplasm of unspecified part of right bronchus or lung (principal); J96.21 Acute and chronic respiratory failure with hypoxia; J91.0 Malignant pleural effusion; R65.10 Systemic inflammatory response syndrome (SIRS) of non-infectious origin without acute organ dysfunction; I50.32 Chronic diastolic (congestive) heart failure; I48.91 Unspecified atrial fibrillation; E88.09 Other disorders of plasma-protein metabolism, not elsewhere classified; I11.0 Hypertensive heart disease with heart failure; Z87.891 Personal history of nicotine dependence
CPT/HCPCS: A7041; J0282; J0690; J1644; J2060; J2270; J2470; J2543; J2704; J3010; J7060

== ENCOUNTER → 2023-12-23 | Outpatient (CLI) | payer OTHER ==
[~2023-12-23] MED LIST changes: +ATIVAN 1MG T1 MG/TAB PO; +ROXANOL 20MG20 MG/ML SL
== END ==
LOC: COL.RAD 08:34
DX: C34.90 Malignant neoplasm of unspecified part of unspecified bronchus or lung (principal)